=== PATIENT | male | born 1940 | race Caucasian/White ===

== ENCOUNTER 2025-08-08 09:45 | Outpatient (AMB) | payer MEDICARE, SELFPAY ==
--- NOTE | 2025-08-08 10:36 | A.OFFPC_ITS ---
Vital Signs 08/08/25 10:45 Height 5 ft 9 in Weight 193 lb BMI 28.5 BP 110/70 Blood Pressure Location Rt brachial Position Sitting Respiration 14 Pulse 68 Pulse Source Pulse Oximeter Temp 98.3 F Temp Source Oral Pulse Oximetry (%) 98 Oxygen Delivery Method Room Air Intake Visit Reasons: [employer] Intake Note: patient is scheduled to establish care with pcp cardiology oncology opthalmology Back Panel Padder Required: No Allergies No Known Allergies Allergy (Verified 08/08/25 10:37) Tobacco use date assessed: 08/08/25 Fall risk assessment: 1 Fall in past year Last assessed Fall Risk: 08/08/25 Dental Screening Dental Screen Date: 08/08/25 Did you have a dental visit in the last 12 months?: Yes Did you have a dental problem in the last 6 months where you did not have access to dental care?: No Was dental information given to patient?: No HPI [employer] HPI Details New Patient? ?? Prior PCP:?Zee Last office visit/CPE:? 3 mos. Acute issue(s):? L knee replacement March 27 ?? PMHx:?afib, HTN L knee replacement , HLD, Vit D deficiency. Prostate CA s/p radiation cardiology Urology oncology opthalmology SurgHx:? Prostate Radiation. L knee & R Knee replacements. SocHx:?Nonsmoker, EtOH 1-2 glass wine in evenings. [facility] Medical History (Updated 08/08/25 @ 11:10 by Dario Williamson) Prostate troubles Arthritis Heart disease High cholesterol High blood pressure Surgical History (Updated 08/08/25 @ 10:42 by ANDERSON Jacob) History of knee replacement procedure of right knee History of knee replacement procedure of left knee Family History (Updated 08/08/25 @ 10:43 by ANDERSON Jacob) Maternal Aunt No problems noted. Mother High blood pressure Thyroid disorder Cancer Father High blood pressure Cancer Social History (Updated 08/08/25 @ 10:44 by ANDERSON Jacob) Housing: House Patient Tobacco Use Status: Former Tobacco user e-Cigarette/Vaping Use: Never Used Second Hand Smoke Exposure: No Use of substances other than those prescribed or required for medical reasons: No service: No Current occupational status: retired Current occupational exposures/hazards: No Cognitive needs: No Hearing needs: No Vision needs: No Questionnaire PHQ-9 Over the last 2 weeks, how often have you been bothered by any of the following problems? 1. Little interest or pleasure in doing things: not at all 2. Feeling down, depressed, or hopeless: not at all 3. Trouble falling or staying asleep, or sleeping too much: not at all 4. Feeling tired or having little energy: not at all 5. Poor appetite or overeating: not at all 6. Feeling bad about yourself - or that you are a failure or have let yourself or your family down: not at all 7. Trouble concentrating on things, such as reading the newspaper or watching television: not at all 8. Moving or speaking so slowly that other people could have noticed. Or the opposite - being so fidgety or restless that you have been moving around a lot more than usual: not at all 9. Thoughts that you would be better off or of hurting yourself in some way: not at all Total score: 0 Depression Screening Interpretation: Negative Depression Screening Done: Yes 65069 - PHQ-9 Billing: Yes Source: Developed by Drs. Aravind Hazel, Cori Andersen, Mendel Fernando and colleagues, with an educational moustapha from [email or web address]. Thrive Questionnaire Date Thrive assessed: 08/08/25 I am a: Patient What is your living situation today?: I have a steady place to live Within the past 12 months, did the food you bought not last and you didn't have the money to get more?: Never true Within the past 12 months, did you worry whether your food would run out before you got money to buy more?: Never true Do you have trouble paying for medicines?: No Do you have trouble getting transportation to medical appointments?: No Do you have trouble paying your heating and electricity bill?: No Do you have trouble taking care of your child, family member or friend?: No Do you have trouble with day-to-day activities such as bathing, preparing meals, shopping, managing finances, etc.?: No Are you currently unemployed and looking for a job?: No Are you interested in more education?: No Currently or been in a relationship where the following occur: No concerns reported THRIVE Score: 0 AUDIT C Alcohol Use Questionnaire (AUDIT-C) 1. How often do you have a drink containing alcohol?: 4 or more times a week 2. How many drinks containing alcohol do you have on a typical day when you are drinking?: 1 or 2 3. How often do you have six or more drinks on one occasion?: Never Total Score: 4 Score Reviewed/Action Taken: Yes ROBER-7 AMB Questionnaire ROBER-7 Date ROBER - 7 assessed: 08/08/25 Feeling nervous, anxious, or on edge: 0 = Not at all Not being able to stop or control worryin = Not at all Worrying too much about different things: 0 = Not at all Trouble relaxin = Not at all Being so restless that it is hard to sit still: 0 = Not at all Becoming easily annoyed or irritable: 0 = Not at all Feeling afraid as if something awful might happen: 0 = Not at all Total ROBER-7 score (0-4 normal; 5-9 mild; 10-14 moderate; 15-21 severe): 0 Source: Developed by Drs. Aravind Hazel, Cori Andersen, Mendel Fernando and colleagues, with an educational moustapha from [email or web address]. ROBER-7 Assessment Billing ROBER-7 Assessment Tool: ROBER-7 Assessment 58064 ACT Questionnaire In the past 4 weeks, how much of the time did your asthma keep you from getting as much done at work, school or at home?: None of the time During the past 4 weeks, how often have you had shortness of breath?: Not at all During the past 4 weeks, how often did your asthma symptoms wake you up at night or earlier than usual in the morning?: Not at all During the past 4 weeks, how often have you had to use your rescue inhaler or nebulizer medication?: Not at all How would you rate your asthma control during the past 4 weeks?: Completely controlled ACT Interpretation: Negative Score: 25 Review of Systems Const Denies chills, Denies fatigue, Denies fever(s), Denies headache(s) and Denies weakness ENT Denies dizziness and Denies headache(s) Card Denies chest pain, Denies lightheadedness, Denies dyspnea and Denies other (Palpitations) Resp Denies cough, Denies dyspnea, Denies wheezing and Denies other ( shortness of breath) Musc Denies numbness and Denies tingling Neuro Denies dizziness, Denies headache(s), Denies numbness, Denies tingling, Denies paresthesias and Denies weakness Psych Denies anxiety and Denies depression Endo Denies fatigue Aller/Immun Denies wheezing Physical exam (Primary Care) Vital Signs: Last Vital Signs Temp 98.3 F 08/08/25 10:45 Pulse 68 08/08/25 10:45 Resp 14 08/08/25 10:45 BP 110/70 08/08/25 10:45 Pulse Ox 98 08/08/25 10:45 Oxygen Delivery Method Room Air 08/08/25 10:45 BMI result Body Mass Index 28.5 Tobacco/Smoking Status: Tobacco use Status Tobacco use date assessed 08/08/25 08/08/25 10:48 Patient Tobacco Use Status Former Tobacco user 08/08/25 10:48 e-Cigarette/Vaping Use Never Used 08/08/25 10:48 PHQ-9: PHQ-9 Score PHQ-9: Total score 0 08/08/25 10:48 Depression Screening Interpretation: Negative Thrive Assessment: Date of Thrive Assessment Date Thrive assessed 08/08/25 08/08/25 10:48 Currently or been in a relationship where the following occur: No concerns reported Const General: no acute distress and well developed Nutritional Appearance: well nourished Orientation/consciousness: patient oriented x3 HENMT Head: Yes normocephalic and Yes atraumatic Eyes General: appearance normal, both eyes and all related structures Pupils: Equal, round and reactive pupils present EOM: EOMs intact bilaterally Resp Effort & Inspection: normal respiratory effort Auscultation: clear to auscultation bilaterally Cardio Rate: regular rate Rhythm: abnormal rhythm irregularly irregular Heart sounds: S1 normal heart sound present, S2 normal heart sound present, no gallops, no murmurs and no rubs Neuro General: patient oriented x3 and gait normal Cranial nerves: Yes Equal, round and reactive pupils present Psych Affect: normal affect Coding Level of Care Code New Pt Level 3 (27906) Diagnoses High blood pressure I10 Afib I48.91 Vitamin D deficiency E55.9 High cholesterol E78.00 History of prostate cancer Z85.46 Laboratory exam ordered as part of routine general medical examination Z00.00 Additional Codes Asthma Control Questionnaire - ACT Interpretation: Negative ([id number]) ROBER-7 Assessment Billing - ROBER-7 Assessment Tool: ROBER-7 Assessment 90501 ([id number]) PHQ-9 - 04746 - PHQ-9 Billing: Yes ([id number]) Assessment & Plan Assessment & Plan (1) High blood pressure: Code(s): I10 - Essential (primary) hypertension Category: Medical Plan: Blood pressure is well controlled on current regimen. Goal is less than 140/90 Continue current medications (2) Afib: Code(s): I48.91 - Unspecified atrial fibrillation Category: Medical Plan: Fairly new diagnosis of atrial fibrillation with likely some CHF acutely. Now on metoprolol and diltiazem for rate control. He is on Eliquis. Auscultation reveals irregularly irregular rhythm but rate is well controlled today. He is on furosemide and may not need this much longer. 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 Will request cardiology notes (3) Vitamin D deficiency: Code(s): E55.9 - Vitamin D deficiency, unspecified Category: Medical Plan: Check vitamin-D level (4) High cholesterol: Code(s): E78.00 - Pure hypercholesterolemia, unspecified Category: Medical Plan: Patient is on simvastatin Will check lipids (5) History of prostate cancer: Code(s): Z85.46 - Personal history of malignant neoplasm of prostate Category: Medical (6) Laboratory exam ordered as part of routine general medical examination: Code(s): Z00.00 - Encounter for general adult medical examination without abnormal findings Category: Medical Plan: Check labs Plan History of prostate cancer and s/p radiation. Followed by Dr. Dias Orders: Orders Complete Blood Count Auto Diff Today Z00.00 - Encounter for general adult medical examination without abnormal findings Lipid Panel Today Z00.00 - Encounter for general adult medical examination without abnormal findings Microalbumin, Random (w Creat) Today I10 - Essential (primary) hypertension TSH reflex Free T4 Today Z00.00 - Encounter for general adult medical examination without abnormal findings UA CC w/rflx Micro + Cult Today Z00.00 - Encounter for general adult medical examination without abnormal findings Vitamin D 25-OH Total Today E55.9 - Vitamin D deficiency, unspecified Comprehensive [place]. Panel Fast Today Z00.00 - Encounter for general adult medical examination without abnormal findings
[2025-08-08 10:45] VITALS: BP 110/70; PULSE 68; RESP 14; TEMP 36.8; O2SAT 98; BMI 28.5
== END 2025-08-08 11:10 | disposition home or self-care (01) ==
LOC: HO.HMCFM 09:45
PROVIDERS: PCP Family Medicine; Visit Provider Family Medicine
DX: I10 Essential (primary) hypertension (principal); I48.91 Unspecified atrial fibrillation; E55.9 Vitamin D deficiency, unspecified; E78.00 Pure hypercholesterolemia, unspecified; Z85.46 Personal history of malignant neoplasm of prostate; Z00.00 Encounter for general adult medical examination without abnormal findings

== ENCOUNTER → 2025-08-08 09:45 | Outpatient (BNVA) | payer MEDICARE, SELFPAY | PROVIDERS: PCP Family Medicine; Visit Provider Family Medicine | DX: Z00.00 Encounter for general adult medical examination without abnormal findings (principal); I10 Essential (primary) hypertension; I48.91 Unspecified atrial fibrillation; E55.9 Vitamin D deficiency, unspecified; E78.00 Pure hypercholesterolemia, unspecified; Z85.46 Personal history of malignant neoplasm of prostate | CPT/HCPCS: 96127; 96160; 99202 ==

== ENCOUNTER 2025-08-14 08:13 | Outpatient (REF) | payer MEDICARE, SELFPAY ==
[2025-08-14 12:00] LABS: MANUAL DIFF FLAG NO
[2025-08-14 12:11] LABS: Hematocrit 37.6 % (42.0-52.0); Hemoglobin 12.1 g/dl (14.0-18.0); Imm Gran Abs Auto 0.01 X10*3/uL (0.00-0.03); Imm Gran Pct Auto 0.2 % (0.0-0.4); Lymphocytes Absolute Auto 0.8 X10*3/uL (1.2-4.9); Mean Corpuscular HGB Conc 32.2 g/dl (31.0-36.0); Mean Corpuscular Hemoglobin 30.3 pg (27.0-33.0); Mean Corpuscular Volume 94.2 fL (80.0-98.0); NRBC Abs Auto 0.000 X10*3/uL (0.0-0.012); NRBC Pct Auto 0.0 /100WBC (0.0-0.2); Platelet Count 231 X10*3/uL (160-400); Red Blood Count 3.99 X10*6/uL (4.60-5.80); White Blood Count 4.7 X10*3/uL (4.8-10.8)
[2025-08-14 12:15] LABS: Alanine Aminotransferase 15 U/L (0-40); Albumin Level 4.2 g/dL (3.5-5.0); Alkaline Phosphatase 69 U/L (39-117); Anion Gap 13 (12-20); Aspartate Amino Transferase 24 U/L (5-37); Blood Urea Nitrogen 18 mg/dL (9-16); Calcium 9.2 mg/dL (8.4-10.2); Carbon Dioxide 26 mmol/L (22-29); Chloride 103 mmol/L (96-108); Cholesterol 133 mg/dL (<200); Estimated Glomerular Filt Rate > 60; HDL Cholesterol 73 mg/dL (>40); Potassium 3.9 mmol/L (3.3-5.1); Sodium 138 mmol/L (135-145); Total Protein 6.7 g/dL (6.5-8.0); Triglycerides 60 mg/dL (<150)
[2025-08-14 14:33] LABS: Appearance Urine Clear; Glucose Urine UA Negative (Negative); PH 6.5 (5.0-9.0); Specific Gravity - Urine 1.020 (1.005-1.025)
[2025-08-14 15:23] LABS: Microalbum/Creatinine Ratio Ur 6.1 ug/mg cr (<30)
== END 2025-08-14 08:14 | disposition home or self-care (01) ==
LOC: HO.WFDLDS 08:13
PROVIDERS: Visit Provider Family Medicine
DX: Z00.00 Encounter for general adult medical examination without abnormal findings (principal); I10 Essential (primary) hypertension; E55.9 Vitamin D deficiency, unspecified
CPT/HCPCS: 36415; 80053; 80061; 81003; 82043; 82306; 82570; 84443; 85025